=== PATIENT | male | born 1990 | race Hispanic/Latino ===

== ENCOUNTER 2025-02-19 11:19 | Emergency (ER) | payer SELFPAY ==
[~2025-02-19] VITALS: Ht 170.2 cm; Wt 81.6 kg
--- NOTE | 2025-02-19 11:30 | ERN ---
ED Note History of Present Illness Stated Complaint: WEAKNESS,SHOULDER PAIN Chief Complaint: Shoulder Injury/Pain Time Seen by MD: 11:21 Dictation: Patient is a 34-year-old male here with complaints of posterior left cervical pain with numbness and tingling to his left arm he has had for 3-4 days. No history of injury your recent falls. He states he does have a history of of a herniated cervical disc that was diagnosed while back. Primary care physician is Dr. Bk Villanueva, he has not been Allergies: Coded Allergies: No Known Drug Allergies (Unverified Allergy, Unknown, 02/19/25) Home Meds Active Scripts Omeprazole (Omeprazole) 40 Mg Capsule.dr, 1 CAP PO DAILY for 30 Days, #30 CAP 0 Refills Prov:HA WASHINGTON NP 02/19/25 Prednisone (Prednisone) 20 Mg Tablet, 1 TAB PO AD for 6 Days, #14 TAB 0 Refills TAKE 1 TAB BY MOUTH THREE TIMES PER DAY X3 DAYS, THEN TAKE 1 TAB BY MOUTH TWICE A DAY X2 DAYS, THEN TAKE 1 TAB BY MOUTH ONCE A DAY X1 DAY. Prov:HA WASHINGTON NP 02/19/25 Cyclobenzaprine HCl (Cyclobenzaprine HCl) 10 Mg Tablet, 1 TAB PO TID for muscle spasms for 10 Days, #30 TAB 0 Refills Prov:HA WASHINGTON NP 02/19/25 Ibuprofen (Ibuprofen 800 mg Tab) 800 Mg Tab, 800 MG PO Q8H PRN for fever or pain, #30 TAB 0 Refills Prov:HA WASHINGTON NP 02/19/25 Past Medical History RN Note Reviewed/Agreed w/PFSH: Yes Review of System Dictation CONSTITUTIONAL: Negative except for HPI HEAD/FACE: Negative except for HPI EENT: Negative except for HPI RESPIRATORY: Negative except for HPI GASTROINTESTINAL/ABDOMINAL: Negative except for HPI GENITOURINARY: Negative except for HPI MUSCULOSKELETAL: Negative except for HPI posterior cervical neck pain INTEGUMENTARY: Negative except for HPI NEUROLOGICAL/PSYCH: Negative except for HPI numbness and tingling left arm HEMATOLOGIC/LYMPHATIC: Negative except for HPI All Systems Negative, Except as noted above. 13 point review of systems assessed and all negative except for above. Initial Vital Sign VS Vital Signs Date Time Temp Pulse Resp B/P (MAP) Pulse Ox O2 Delivery O2 Flow Rate FiO2 02/19/25 11:26 98.2 78 18 125/54 99 Room Air 0 02/19/25 11:48 21 Physical Exam Dictation Vital Signs reviewed General Appearance: Alert, oriented x 3, moderate acute distress, well developed, nourished. Head and Face: non-traumatic. Eyes: PERRL, pink conjunctivas, eyelid no trauma, anterior chamber with arcus senilis. Ears: Pinnas intact and no signs of trauma or erythema ear canals clear and no discharge TM no erythema Nose: No discharge, no bleeding. Oropharynx: Mouth normal, tongue pink, pharynx clear,no erythema, tonsils no exudates, no abscesses noted, mucous membrane moist Neck: Supple, left lateral cervical tenderness, no thyromegaly, no masses, no JVD, no bruits no step-offs Breast:Deferred Chest:No tenderness, no crepitus, no paradoxical movement, no retractions Lungs:Clear, well-ventilated, symmetric, no rales, no wheezing, no rhonchi, no stridor, good breath sounds bilaterally Heart: Regular rate, regular rhythm, no murmur, no gallops Vascular: no peripheral edema, Abdomen: Soft, positive bowel sounds, nondistended, no guarding, nontender, no rebound, no masses no hepatomegaly, no splenomegaly, no Kirkland's sign, no hernias. Rectal: Deferred Genital: Deferred Neurological: Normal speech, motor function intact, left arm decreased sensation. . Full range of motion all extremities moves all extremities 5/5 bilateral Musculoskeletal: Left lateral posterior cervical tenderness no step-offs, full range of motion, back nontender, full range of motion, Extremities: nontender, full range of motion Skin: Color pink, dry, no turgor, no rash, no lacerations, no abrasions, no contusions. Lymphatic: Deferred Results (Laboratory/Radiology) Laboratory/Radiology ERVICAL SPINE RADIOGRAPHS - 2-3 VIEWS INDICATION: Left posterior cervical tenderness COMPARISON: None FINDINGS: Lateral, AP/odontoid, and swimmer's views. Straightening of the normal lordosis may be related to overlying muscle spasm and/or patient positioning. No acute fracture or malalignment identified. Prevertebral soft tissues are not swollen. The atlanto-dens interval is within normal limits for patient's age. Spot view of the odontoid is without evidence for fracture. Vertebral body heights are within normal limits. Disc heights are well preserved Visible lung apices are clear. IMPRESSION: No acute fracture or subluxation identified. Labs Reviewed?: Yes ED Course ED Course Orders Procedure Category Date Status Time Cerv Spine 2-3vws RAD 02/19/25 Resulted 11:31 Dexamethasone 4mg/Ml PHA 02/19/25 Complete 1ml Vial (Dexametha 12:00 Cyclobenzaprine Hcl PHA 02/19/25 Complete (Cyclobenzaprine Hcl 12:00 Ibuprofen 800 Mg Tab PHA 02/19/25 Complete (Motrin) 12:00 Current Medications Medications (Trade) Dose Ordered Sig/Ida Route PRN Reason Start Time Stop Time Status Last Admin Dose Admin Cyclobenzaprine HCl (Cyclobenzaprine HCl) 10 mg ONCE ONCE PO 02/19/25 12:00 02/19/25 12:01 DC 02/19/25 11:57 Dexamethasone Sodium Phosphate (dexaMETHasone 4MG/ML 1ML VIAL) 8 mg ONCE ONCE IM 02/19/25 12:00 02/19/25 12:01 DC 02/19/25 11:57 Ibuprofen (moTRIN) 800 mg ONCE ONCE PO 02/19/25 12:00 02/19/25 12:01 DC 02/19/25 11:57 Vital Signs Date Time Temp Pulse Resp B/P (MAP) Pulse Ox O2 Delivery O2 Flow Rate FiO2 02/19/25 12:38 98.2 72 18 127/62 99 Room Air* 0 21 02/19/25 11:48 98.2 78 18 125/57 99 Room Air* 0 21 02/19/25 11:26 98.2 78 18 125/54 99 Room Air 0 Medical Decision Making MDM Medical decision-making based on x-ray of cervical spine X-ray negative Patient given Decadron/Motrin/cyclobenzaprine We will be discharged home with same and told to see his primary care doctor in 1-2 days for recommended MRI of cervical spine DX & DISP Disposition: Discharge Departure Impression: Primary Impression: Cervical radiculopathy Condition: Stable Scripts Omeprazole (Omeprazole) 40 Mg Capsule. 1 CAP PO DAILY for 30 Days, #30 CAP 0 Refills Prov: HA WASHINGTON COUNTER CONTROL OPERATOR 02/19/25 Prednisone (Prednisone) 20 Mg Tablet 1 TAB PO AD for 6 Days, #14 TAB 0 Refills TAKE 1 TAB BY MOUTH THREE TIMES PER DAY X3 DAYS, THEN TAKE 1 TAB BY MOUTH TWICE A DAY X2 DAYS, THEN TAKE 1 TAB BY MOUTH ONCE A DAY X1 DAY. Prov: HA WASHINGTON NP 02/19/25 Cyclobenzaprine HCl (Cyclobenzaprine HCl) 10 Mg Tablet 1 TAB PO TID for muscle spasms for 10 Days, #30 TAB 0 Refills Prov: HA WASHINGTON NP 02/19/25 Ibuprofen (Ibuprofen 800 mg Tab) 800 Mg Tab 800 MG PO Q8H PRN for fever or pain, #30 TAB 0 Refills Prov: HA WASHINGTON NP 02/19/25 Additional Instructions: Follow-up with primary care provider in 1 to 2 days. Take medications as directed here in the emergency room. Okay to continue home medications unless otherwise discussed during your visit in the emergency room today. Return to your nearest emergency room if symptoms worsen or if there is no improvement. Call 911 if you need immediate assistance. Take Tylenol or Motrin [id number] as needed and if no contraindications are present. Increase oral hydration. A wound culture or urine culture was ordered here in the emergency room department please follow-up with primary care provider and advise them to get repeat ports from our facility. If you had any Kelechi wrap/splints that were applied here, please do not remove them until you see your primary care or specialty. Take prednisone with food as directed until gone. Take ibuprofen and Flexeril every 8 hours for the next two days. See your primary care doctor on Thursday or Thursday for follow up and recommended MRI of the cervical spine. Take omeprazole daily for the next 30 days. Referrals: SELF,REFERRAL (PCP) Time of Disposition: 12:20 I have reviewed the case, and I agree with, Diagnosis and Plan HA WASHINGTON NP Feb 19, 2025 11:30 TERI LEON DO Feb 19, 2025 18:42
[2025-02-19] MEDS: CYCLOBENZAPRINE HCL 10 MG TABLET PO ONE (11:57)
[2025-02-19] MEDS: ibuPROFEN 800 MG TAB PO ONE (11:57)
[2025-02-19] MEDS: dexaMETHasone SOD PHOSPHATE 4 MG/ML 1ML VIAL IM ONE (11:57)
--- NOTE | 2025-02-19 12:10 | HMCIMG ---
CERVICAL SPINE RADIOGRAPHS - 2-3 VIEWS INDICATION: Left posterior cervical tenderness COMPARISON: None FINDINGS: Lateral, AP/odontoid, and swimmer's views. Straightening of the normal lordosis may be related to overlying muscle spasm and/or patient positioning. No acute fracture or malalignment identified. Prevertebral soft tissues are not swollen. The atlanto-dens interval is within normal limits for patient's age. Spot view of the odontoid is without evidence for fracture. Vertebral body heights are within normal limits. Disc heights are well preserved Visible lung apices are clear. IMPRESSION: No acute fracture or subluxation identified.
[2025-02-19] MEDS ORDERED: CYCL-309 PO (12:21)
[2025-02-19] MEDS ORDERED: PRED20TA3 PO (12:21)
[2025-02-19] MEDS ORDERED: OMEP40CA21 PO (12:21)
[2025-02-19] MEDS ORDERED: IBUP-2077 PO (12:21)
[2025-02-19 12:38] VITALS: BP 127/62; PULSE 72; RESP 18; TEMP 98.2; O2SAT 99
== END 2025-02-19 12:39 | disposition home or self-care (01) ==
LOC: EDH 11:19
DX: M54.12 Radiculopathy, cervical region (principal); Z79.899 Other long term (current) drug therapy
CPT/HCPCS: 99283; 72040; 96372; J1100